=== PATIENT | male | born 1995 | race Two or more races ===

== ENCOUNTER 2021-03-11 20:31 | Inpatient (IN) | payer BC ==
[~2021-03-11] VITALS: Ht 180.3 cm; Wt 87.3 kg
[2021-03-11] MEDS ORDERED: SODIUM CHLORIDE 0.9% 1,000 ML IV ONE ×2 (21:15→23:00)
[2021-03-11] MEDS ORDERED: ONDANSETRON HCL 4 MG/2 ML VIAL IV ONE (21:15)
[2021-03-11 21:21] LABS: Basophils # (auto) 0 10 ^3/uL (0-0.2); Basophils % (auto) 0.2 % (0.0-2.0); Eosinophils # (auto) 0.4 10 ^3/uL (0-0.8); Eosinophils % (auto) 3.2 % (0.0-7.0); Hematocrit 51.6 % (41.0-53.0); Hemoglobin 17.3 g/dL (13.5-17.5); Lymphocytes # (auto) 2.4 10 ^3/uL (0.4-5.4); Lymphocytes % (auto) 20.3 % (10.0-50.0); Mean Corpuscular Hemoglobin 29.6 pg (28.0-32.0); Mean Corpuscular Hgb Conc. 33.6 g/dL (32.0-36.0); Mean Corpuscular Volume 88.1 fL (80.0-100.0); Monocytes # (auto) 0.7 10 ^3/uL (0-1.3); Monocytes % (auto) 5.8 % (0.0-12.0); Neutrophils # (auto) 8.2 10 ^3/uL (1.6-8.6); Neutrophils % (auto) 70.5 % (37.0-80.0); Red Blood Cells 5.86 10^6/uL (4.5-5.90); Red Cell Distribution Width 13.7 % (11.8-14.3); White Blood Cell 11.6 10^3/uL (4.4-10.8)
[2021-03-11 21:29] LABS: Albumin 4.3 g/dL (3.4-5.0); BUN/Creatinine Ratio 12.2; Calcium 9.1 mg/dL (8.5-10.1); Potassium 3.9 mmol/L (3.5-5.1)
[2021-03-11 21:32] LABS: Bilirubin, Total 0.6 mg/dL (0.2-1.0)
[2021-03-11 21:32] LABS: Urine Bacteria NONE SEEN /hpf (None Seen); Urine Blood Negative /uL (Negative); Urine Mucus FEW (None Seen); Urine Specific Gravity 1.028 (1.001-1.035); Urine WBC 25 /hpf (0 - 3)
[2021-03-11 21:44] LABS: Amphetamine Screen, Urine NEGATIVE (NEGATIVE); Barbiturate Scree,Urine NEGATIVE (NEGATIVE); Benzodiazephine Screen, Urine NEGATIVE (NEGATIVE); Cannabinoid Screen, Urine NEGATIVE (NEGATIVE); Cocaine Screen, Urine NEGATIVE (NEGATIVE); Opiate Scree,Urine NEGATIVE (NEGATIVE); Phencyclidine Screen, Urine NEGATIVE (NEGATIVE)
[2021-03-11] MEDS ORDERED: cefTRIAXone 1GM/50ML D5W 50 ML IV ONE (23:00)
[2021-03-11] MEDS ORDERED: MORPHINE SULFATE 4 MG/ML SYR/VIAL IV ONE (23:00)
[2021-03-12] MEDS ORDERED: BENZOCAINE (DENTAL) 20 % SPRAY 60ML MT ONE (00:15)
[2021-03-12] MEDS ORDERED: HYDROcodone-ACET 5/325MG TAB PO PRN (04:30)
[2021-03-12] MEDS ORDERED: MORPHINE SULFATE INJECTION 2 MG/ML SYRG IV PRN (04:30)
[2021-03-12] MEDS ORDERED: ONDANSETRON HCL 4 MG/2 ML VIAL IV PRN (04:30)
[2021-03-12] MEDS ORDERED: NITROGLYCERIN 0.4 MG SL TAB SL PRN (04:30)
[2021-03-12] MEDS ORDERED: MORPHINE SULFATE 4 MG/ML SYR/VIAL IV PRN (04:30)
[2021-03-12] MEDS ORDERED: ACETAMINOPHEN 325 MG TAB PO PRN (04:30)
[2021-03-12 04:52] LABS: Basophils # (auto) 0 10 ^3/uL (0-0.2); Basophils % (auto) 0.3 % (0.0-2.0); Eosinophils # (auto) 0.2 10 ^3/uL (0-0.8); Eosinophils % (auto) 2.4 % (0.0-7.0); Hematocrit 46.4 % (41.0-53.0); Hemoglobin 15.7 g/dL (13.5-17.5); Lymphocytes # (auto) 2.2 10 ^3/uL (0.4-5.4); Lymphocytes % (auto) 29.7 % (10.0-50.0); Mean Corpuscular Hemoglobin 29.9 pg (28.0-32.0); Mean Corpuscular Hgb Conc. 33.9 g/dL (32.0-36.0); Mean Corpuscular Volume 88.2 fL (80.0-100.0); Monocytes # (auto) 0.7 10 ^3/uL (0-1.3); Monocytes % (auto) 10.1 % (0.0-12.0); Neutrophils # (auto) 4.2 10 ^3/uL (1.6-8.6); Neutrophils % (auto) 57.5 % (37.0-80.0); Red Blood Cells 5.25 10^6/uL (4.5-5.90); Red Cell Distribution Width 13.2 % (11.8-14.3); White Blood Cell 7.4 10^3/uL (4.4-10.8)
[2021-03-12 05:16] LABS: BUN/Creatinine Ratio 10.5; Bilirubin, Total 0.7 mg/dL (0.2-1.0); Total Protein 6.4 g/dL (6.4-8.2)
[2021-03-12 05:45] LABS: Albumin 3.4 g/dL (3.4-5.0); Calcium 8.4 mg/dL (8.5-10.1)
[2021-03-12 06:45] VITALS: BP 111/75
[2021-03-12 08:00] VITALS: BP 131/69
[2021-03-12 09:00] VITALS: BP 131/69
[2021-03-12] MEDS: FAMOTIDINE (10MG/ML) 2ML VL IV SCH ×2 (09:34→21:41)
[2021-03-12] MEDS: ENOXAPARIN SOD 40 MG/0.4 ML SYRINGE SC SCH (09:34)
[2021-03-12] MEDS ORDERED: GASTROGRAFIN 120 ML SOL ONE (10:34)
[2021-03-12 13:00] VITALS: BP 124/71
[2021-03-12] MEDS: D5W/SOD CHL 0.45% 1,000 ML IV SCH (13:24)
[2021-03-12 17:00] VITALS: BP 131/63
[2021-03-12] MEDS: metroNIDAZOLE 500MG/100ML 100 ML IV SCH ×2 (18:40→22:30)
[2021-03-12] MEDS: cefTRIAXone 1GM/50ML D5W 50 ML IV SCH (21:41)
[2021-03-12 22:52] VITALS: BP 137/75
[2021-03-12] MEDS ORDERED: methylPREDNISolone SOD SUCC 125 MG/2 ML VL ONE (23:48)
[2021-03-13] MEDS: D5W/SOD CHL 0.45% 1,000 ML IV SCH ×2 (00:30→21:35)
[2021-03-13 04:52] LABS: Basophils # (auto) 0 10 ^3/uL (0-0.2); Basophils % (auto) 0.3 % (0.0-2.0); Eosinophils # (auto) 0.3 10 ^3/uL (0-0.8); Eosinophils % (auto) 3.6 % (0.0-7.0); Hemoglobin 16.4 g/dL (13.5-17.5); Lymphocytes % (auto) 25.5 % (10.0-50.0); Mean Corpuscular Hemoglobin 30.2 pg (28.0-32.0); Mean Corpuscular Hgb Conc. 34.3 g/dL (32.0-36.0); Mean Corpuscular Volume 88.1 fL (80.0-100.0); Monocytes # (auto) 0.7 10 ^3/uL (0-1.3); Monocytes % (auto) 9.4 % (0.0-12.0); Neutrophils # (auto) 4.7 10 ^3/uL (1.6-8.6); Neutrophils % (auto) 61.2 % (37.0-80.0); Nucleated Red Blood Cells % 0.1 %; Red Blood Cells 5.45 10^6/uL (4.5-5.90); Red Cell Distribution Width 13.3 % (11.8-14.3); White Blood Cell 7.7 10^3/uL (4.4-10.8)
[2021-03-13 05:10] LABS: Potassium 3.5 mmol/L (3.5-5.1)
[2021-03-13 05:15] LABS: Albumin 3.5 g/dL (3.4-5.0); BUN/Creatinine Ratio 8.4; Calcium 8.7 mg/dL (8.5-10.1)
[2021-03-13 05:18] LABS: Bilirubin, Total 0.9 mg/dL (0.2-1.0); Total Protein 6.9 g/dL (6.4-8.2)
[2021-03-13 05:23] VITALS: BP 129/91
[2021-03-13] MEDS: metroNIDAZOLE 500MG/100ML 100 ML IV SCH ×3 (06:05→21:35)
[2021-03-13 09:00] VITALS: BP 122/78
[2021-03-13] MEDS: FAMOTIDINE (10MG/ML) 2ML VL IV SCH ×2 (09:39→21:34)
[2021-03-13] MEDS: ENOXAPARIN SOD 40 MG/0.4 ML SYRINGE SC SCH ×2 (09:39→09:55)
[2021-03-13 13:00] VITALS: BP 115/69
[2021-03-13 16:59] VITALS: BP 103/61
[2021-03-13] MEDS: cefTRIAXone 1GM/50ML D5W 50 ML IV SCH (21:35)
[2021-03-13 22:00] VITALS: BP 120/81
[2021-03-14 05:00] VITALS: BP 96/70
[2021-03-14] MEDS: metroNIDAZOLE 500MG/100ML 100 ML IV SCH ×2 (05:54→14:00)
[2021-03-14 08:34] VITALS: BP 105/55
[2021-03-14] MEDS: ENOXAPARIN SOD 40 MG/0.4 ML SYRINGE SC SCH (10:00)
[2021-03-14] MEDS: FAMOTIDINE (10MG/ML) 2ML VL IV SCH (10:14)
[2021-03-14 12:16] VITALS: BP 105/55
[2021-03-14 13:00] VITALS: BP 118/60
== END 2021-03-14 15:51 | disposition home or self-care (01) | DRG 389 ==
LOC: ER 20:31 → OVERFLOW 03-12 04:21 → WEST WING 03-12 05:30
PROVIDERS: ADMIT Nurse Practitioner Family; ATTEND Internal Medicine
DX: K56.600 Partial intestinal obstruction, unspecified as to cause (principal); N39.0 Urinary tract infection, site not specified; K52.9 Noninfective gastroenteritis and colitis, unspecified; Z80.9 Family history of malignant neoplasm, unspecified; Z83.3 Family history of diabetes mellitus; Z87.19 Personal history of other diseases of the digestive system; Z90.49 Acquired absence of other specified parts of digestive tract; Z20.822 Contact with and (suspected) exposure to COVID-19
CPT/HCPCS: 36415; 71045; 74176; 74250; 80053; 80307; 81001; 83690; 85025; 87040; 87086; 87426; 96361; 96374; 96375; G0378; J0696; J2405; J3490

== ENCOUNTER 2023-01-23 11:42 | Inpatient (IN) | payer BC ==
[~2023-01-23] VITALS: Ht 180.3 cm; Wt 92.3 kg
[2023-01-23 12:47] LABS: Urine Bacteria NONE SEEN /hpf (None Seen); Urine Blood Negative /uL (Negative); Urine Clarity Clear (Clear); Urine Protein, UAD Negative (Negative); Urine Specific Gravity 1.012 (1.001-1.035); Urine Urobilinogen Normal (Negative); Urine WBC 3 /hpf (0 - 3)
[2023-01-23 12:49] LABS: Urine Color Straw (Yellow)
[2023-01-23 12:50] LABS: Basophils # (auto) 0 10 ^3/uL (0-0.2); Basophils % (auto) 0.4 % (0.0-2.0); Eosinophils # (auto) 0.3 10 ^3/uL (0-0.8); Eosinophils % (auto) 4.8 % (0.0-7.0); Hematocrit 48.8 % (41.0-53.0); Hemoglobin 16.6 g/dL (13.5-17.5); Lymphocytes % (auto) 31.3 % (10.0-50.0); Mean Corpuscular Hemoglobin 30.3 pg (28.0-32.0); Mean Corpuscular Hgb Conc. 34.1 g/dL (32.0-36.0); Mean Corpuscular Volume 88.8 fL (80.0-100.0); Monocytes # (auto) 0.5 10 ^3/uL (0-1.3); Monocytes % (auto) 7.8 % (0.0-12.0); Neutrophils # (auto) 3.5 10 ^3/uL (1.6-8.6); Neutrophils % (auto) 55.7 % (37.0-80.0); Nucleated Red Blood Cells % 0.1 %; Red Cell Distribution Width 13.3 % (11.8-14.3); White Blood Cell 6.3 10^3/uL (4.4-10.8)
[2023-01-23 13:02] LABS: Alcohol, Urine < 3.0 mg/dL (0-10); Amphetamine Screen, Urine NEGATIVE (NEGATIVE); Barbiturate Scree,Urine NEGATIVE (NEGATIVE); Benzodiazephine Screen, Urine NEGATIVE (NEGATIVE); Cannabinoid Screen, Urine NEGATIVE (NEGATIVE); Cocaine Screen, Urine NEGATIVE (NEGATIVE); Opiate Scree,Urine NEGATIVE (NEGATIVE); Phencyclidine Screen, Urine NEGATIVE (NEGATIVE)
[2023-01-23 13:38] LABS: Albumin 4.4 g/dL (3.4-5.0); Calcium 9.3 mg/dL (8.5-10.1); Potassium 3.9 mmol/L (3.5-5.1)
[2023-01-23 13:41] LABS: BUN/Creatinine Ratio 11.5 (10.0-20.0)
[2023-01-23 13:44] LABS: Bilirubin, Total 0.5 mg/dL (0.2-1.0); Total Protein 7.5 g/dL (6.4-8.2)
[2023-01-23] MEDS ORDERED: ONDANSETRON HCL 4 MG/2 ML VIAL IV ONE (13:45)
[2023-01-23] MEDS ORDERED: SODIUM CHLORIDE 0.9% 1,000 ML IV ONE ×2 (13:45)
[2023-01-23 15:07] VITALS: PULSE 77; RESP 20; O2SAT 98
[2023-01-23] MEDS: SODIUM CHLORIDE 0.9% 1,000 ML IV SCH (16:45)
[2023-01-23] MEDS ORDERED: ACETAMINOPHEN 325 MG TAB PO PRN (16:45)
[2023-01-23 22:45] VITALS: PULSE 71; RESP 20; O2SAT 98
[2023-01-23] MEDS: ONDANSETRON HCL 4 MG/2 ML VIAL IV PRN (22:49)
[2023-01-23] MEDS: metroNIDAZOLE 500MG/100ML 100 ML IV SCH (22:49)
[2023-01-24] VITALS (7 sets, daily range): BP systolic 100–118; BP diastolic 54–69; PULSE 61–97; RESP 16–17; TEMP 97.1–98.4; O2SAT 95–97
[2023-01-24] MEDS: SODIUM CHLORIDE 0.9% 1,000 ML IV SCH ×2 (05:55→12:45)
[2023-01-24] MEDS: metroNIDAZOLE 500MG/100ML 100 ML IV SCH ×3 (05:56→21:24)
[2023-01-24 05:57] LABS: Basophils # (auto) 0 10 ^3/uL (0-0.2); Basophils % (auto) 0.4 % (0.0-2.0); Eosinophils # (auto) 0.4 10 ^3/uL (0-0.8); Hematocrit 43.5 % (41.0-53.0); Hemoglobin 14.9 g/dL (13.5-17.5); INR 1.08 (0.9-1.15); Lymphocytes # (auto) 2.3 10 ^3/uL (0.4-5.4); Mean Corpuscular Hemoglobin 30.5 pg (28.0-32.0); Mean Corpuscular Hgb Conc. 34.2 g/dL (32.0-36.0); Mean Corpuscular Volume 89.2 fL (80.0-100.0); Monocytes # (auto) 0.6 10 ^3/uL (0-1.3); Monocytes % (auto) 9.4 % (0.0-12.0); Neutrophils % (auto) 47.2 % (37.0-80.0); Partial Thromboplastin Time 29.7 SEC (24.5-34.5); Prothrombin Time 11.3 sec (9.3-11.8); Red Blood Cells 4.88 10^6/uL (4.5-5.90); Red Cell Distribution Width 13.1 % (11.8-14.3); White Blood Cell 6.3 10^3/uL (4.4-10.8)
[2023-01-24 06:42] LABS: Albumin 3.6 g/dL (3.4-5.0); BUN/Creatinine Ratio 11.6 (10.0-20.0); Bilirubin, Total 0.9 mg/dL (0.2-1.0); Calcium 8.7 mg/dL (8.5-10.1); Total Protein 6.5 g/dL (6.4-8.2)
[2023-01-24] MEDS ORDERED: GASTROGRAFIN 120 ML SOL ONE (12:47)
[2023-01-25 05:00] VITALS: BP 99/51; PULSE 70; RESP 20; TEMP 97.8; O2SAT 99
[2023-01-25] MEDS: metroNIDAZOLE 500MG/100ML 100 ML IV SCH ×3 (05:10→21:55)
[2023-01-25 06:49] LABS: Basophils # (auto) 0 10 ^3/uL (0-0.2); Basophils % (auto) 0.3 % (0.0-2.0); Eosinophils # (auto) 0.3 10 ^3/uL (0-0.8); Eosinophils % (auto) 5.6 % (0.0-7.0); Hematocrit 45.4 % (41.0-53.0); Hemoglobin 15.4 g/dL (13.5-17.5); Lymphocytes # (auto) 1.7 10 ^3/uL (0.4-5.4); Lymphocytes % (auto) 31.6 % (10.0-50.0); Mean Corpuscular Hemoglobin 30.3 pg (28.0-32.0); Mean Corpuscular Hgb Conc. 33.9 g/dL (32.0-36.0); Mean Corpuscular Volume 89.3 fL (80.0-100.0); Monocytes # (auto) 0.5 10 ^3/uL (0-1.3); Monocytes % (auto) 9.7 % (0.0-12.0); Neutrophils # (auto) 2.8 10 ^3/uL (1.6-8.6); Neutrophils % (auto) 52.8 % (37.0-80.0); Nucleated Red Blood Cells % 0.1 %; Red Blood Cells 5.08 10^6/uL (4.5-5.90); White Blood Cell 5.4 10^3/uL (4.4-10.8)
[2023-01-25 07:02] LABS: Potassium 3.5 mmol/L (3.5-5.1)
[2023-01-25 07:04] LABS: BUN/Creatinine Ratio 11.1 (10.0-20.0); Calcium 8.8 mg/dL (8.5-10.1)
[2023-01-25 09:00] VITALS: BP_SYST 112; BP_SYST 97; BP_DIAS 45; BP_DIAS 49; PULSE 63; PULSE 68; RESP 18; RESP 20; TEMP 98; TEMP 98.3; O2SAT 97; O2SAT 98
[2023-01-25] MEDS: ONDANSETRON HCL 4 MG/2 ML VIAL IV PRN (10:50)
[2023-01-25] MEDS ORDERED: FLUMAZENIL 0.1 MG/ML INJ 10ML MDV IV ONE (12:37)
[2023-01-25] MEDS ORDERED: NALOXONE HCL 0.4 MG/ML VIAL ONE (12:37)
[2023-01-25] MEDS ORDERED: LIDOCAINE VISCOUS 2% 15ML UD ONE (12:45)
[2023-01-25] MEDS ORDERED: SODIUM CHLORIDE LOCK 10 ML ONE (12:45)
[2023-01-25 13:10] VITALS: O2SAT 98
[2023-01-25] MEDS: diphenhdrAMINE HCL 50 MG/1 ML VL ONE ×2 (13:15→13:18)
[2023-01-25] MEDS: MIDAZOLAM HCL 5 MG/ML-1ML VIAL ONE ×3 (13:15→13:22)
[2023-01-25] MEDS: fentaNYL CITRATE 100 MCG/2 ML VL ONE ×4 (13:15→13:33)
[2023-01-25 13:44] VITALS: RESP 17; O2SAT 96
[2023-01-25] MEDS: SUCRALFATE 1 GM/10 ML ORAL SUSP PO SCH ×2 (16:07→21:54)
[2023-01-25 16:59] VITALS: BP 105/65; PULSE 71; RESP 17; TEMP 98.1; O2SAT 97
[2023-01-25] MEDS: PANTOPRAZOLE 40 MG TAB PO SCH (21:54)
[2023-01-25 22:00] VITALS: BP 111/71; PULSE 63; RESP 18; TEMP 98.4; O2SAT 97
[2023-01-26 05:00] VITALS: BP 94/60; PULSE 58; RESP 18; TEMP 97.6; O2SAT 98
[2023-01-26] MEDS: metroNIDAZOLE 500MG/100ML 100 ML IV SCH (06:10)
[2023-01-26] MEDS: SUCRALFATE 1 GM/10 ML ORAL SUSP PO SCH ×2 (06:10→10:37)
[2023-01-26 08:00] VITALS: RESP 14
[2023-01-26 09:14] VITALS: BP 121/69; PULSE 58; RESP 15; TEMP 97.9; O2SAT 96
[2023-01-26] MEDS: PANTOPRAZOLE 40 MG TAB PO SCH (10:37)
[2023-01-26 11:53] VITALS: BP 121/69; PULSE 58; RESP 15; TEMP 97.9; O2SAT 96
== END 2023-01-26 12:55 | disposition home or self-care (01) | DRG 392 ==
LOC: ER 11:42 → OVERFLOW 16:45 → CENTRAL 01-24 02:42
PROVIDERS: ADMIT Internal Medicine Pulmonary Disease
PROC: 0DB98ZX Excision of Duodenum, Via Natural or Artificial Opening Endoscopic, Diagnostic (ICD-10-PCS; principal; 2023-01-23)
PROC: 0DB68ZX Excision of Stomach, Via Natural or Artificial Opening Endoscopic, Diagnostic (ICD-10-PCS; 2023-01-23)
PROC: 0DB48ZX Excision of Esophagogastric Junction, Via Natural or Artificial Opening Endoscopic, Diagnostic (ICD-10-PCS; 2023-01-23)
DX: K52.9 Noninfective gastroenteritis and colitis, unspecified (principal); K22.10 Ulcer of esophagus without bleeding; K59.00 Constipation, unspecified; K44.9 Diaphragmatic hernia without obstruction or gangrene; Z80.9 Family history of malignant neoplasm, unspecified; Z83.3 Family history of diabetes mellitus; Z90.49 Acquired absence of other specified parts of digestive tract
CPT/HCPCS: 36415; 74176; 74250; 80048; 80053; 80307; 81001; 85025; 85610; 85730; 86850; 86900; 86901; 87045; 87177; 87427; G0378; J2250; J2405; J3490